=== PATIENT | female | born 1975 | race Caucasian/White ===

== ENCOUNTER → 2016-11-24 | Outpatient (REF) | payer BC ==
[~2016-11-24] MED LIST: /AUGM875TA; VICO5TAB; no home meds
[2016-11-24 15:13] LABS: MEAN CORPUSCULAR HEMOGLOBIN 31.9 pg (27.0-33.0); MEAN CORPUSCULAR HGB CONC 33.5 g/dl (32.0-36.5); MEAN CORPUSCULAR VOLUME 95.2 fl (80.0-96.0); RED CELL DISTRIBUTION WIDTH 12.7 % (11.5-14.5)
[2016-11-24 15:14] LABS: ALBUMIN 3.6 GM/DL (3.2-5.2); ALKALINE PHOSPHATASE 109 U/L (45-117); ALT/SGPT 70 U/L (12-78); ANION GAP 6 MEQ/L (8-16); AST/SGOT 45 U/L (15-37); BILIRUBIN,TOTAL 0.5 MG/DL (0.2-1.0); BLOOD UREA NITROGEN 15 MG/DL (7-18); CALCIUM LEVEL 9.5 MG/DL (8.5-10.1); CARBON DIOXIDE LEVEL 31 MEQ/L (21-32); CHLORIDE LEVEL 98 MEQ/L (98-107); CHOLESTEROL LEVEL 219 MG/DL (<200); CREATININE FOR GFR 0.77 MG/DL (0.55-1.02); GLOMERULAR FILTRATION RATE > 60.0 (>58); GLUCOSE, FASTING 169 MG/DL (70-105); POTASSIUM SERUM 4.4 MEQ/L (3.5-5.1); SODIUM LEVEL 135 MEQ/L (136-145); TOTAL PROTEIN 7.6 GM/DL (6.4-8.2); TRIGLYCERIDES LEVEL 248 MG/DL (<150)
== END ==
LOC: M LABDRAW1 13:34
PROVIDERS: ATTEND Family Medicine
DX: E11.9 Type 2 diabetes mellitus without complications (principal)

== ENCOUNTER 2017-04-19 18:09 | Inpatient (IN) | payer BC, SELFPAY ==
[2017-04-19] MEDS: ONDANSETRON 4MG/2ML VIAL (J2405) IV (18:30)
[2017-04-19] MEDS: NS 1,000 ML IV ×3 (18:30→22:23)
[2017-04-19 18:45] LABS: VENOUS BASE EXCESS -3.4 (-2.0-2.0); VENOUS O2 SATURATION 72.6 % (60.0-80.0); VENOUS PARTIAL PRESSURE CO2 44.3 mmHg (38.0-50.0); VENOUS PARTIAL PRESSURE O2 40.3 mmHg (30.0-50.0); VENOUS STANDARD HCO3 21.1 MEQ/L
[2017-04-19 18:48] LABS: LEFT SHIFT POS FLAG; MEAN CORPUSCULAR HGB CONC 33.1 g/dl (32.0-36.5); MEAN CORPUSCULAR VOLUME 90.7 fl (80.0-96.0); PLATELET COUNT, AUTOMATED 104 10^3/uL (150-450); POSITIVE DIFF POS FLAG; POSITIVE MORPH POS FLAG; WBC SCAT POS FLAG; WHITE BLOOD COUNT 16.7 10^3/uL (4.0-10.0)
[2017-04-19 18:49] LABS: ADD MANUAL DIFFER YES; DIFF SLIDE NUMBER 285
[2017-04-19 19:16] LABS: ALBUMIN 2.3 GM/DL (3.2-5.2); ALBUMIN/GLOBULIN RATIO 0.58 (1.00-1.93); ALKALINE PHOSPHATASE 167 U/L (45-117); ALT/SGPT 83 U/L (12-78); ANION GAP 15 MEQ/L (8-16); AST/SGOT 102 U/L (7-37); BILIRUBIN,DIRECT 0.2 MG/DL (0.0-0.2); BILIRUBIN,TOTAL 0.5 MG/DL (0.2-1.0); BLOOD UREA NITROGEN 41 MG/DL (7-18); CALCIUM LEVEL 8.6 MG/DL (8.5-10.1); CARBON DIOXIDE LEVEL 25 MEQ/L (21-32); CHLORIDE LEVEL 95 MEQ/L (98-107); POTASSIUM SERUM 5.1 MEQ/L (3.5-5.1); SODIUM LEVEL 135 MEQ/L (136-145); TOTAL PROTEIN 6.3 GM/DL (6.4-8.2)
[2017-04-19 19:20] LABS: BANDS 19 % (< 11)
[2017-04-19 19:21] LABS: GLUCOSE, FASTING 463 MG/DL (70-105)
[2017-04-19] MEDS: HumuLIN R (REGULAR) INSULIN (NovoLIN R) **100U/ML** PER UNIT IV (20:41)
[2017-04-19] MEDS: MORPHINE 2 MG/ML 1ML SYRINGE IV ×2 (20:58→23:25)
[2017-04-19] MEDS ORDERED: GLUCOSE 4 GM CHEW TABLET PO (22:00)
[2017-04-19] MEDS ORDERED: GLUCAGON FOR INJ 1 MG VIAL (J1610) SC (22:00)
[2017-04-19] MEDS ORDERED: DEXTROSE 50% 50 ML SYRINGE IV (22:00)
[2017-04-20] MEDS: CEFTRIAXONE SOD 1 GM in APPROPRIATE DILUENT 1 EA IV (00:03)
[2017-04-20] MEDS: HumaLOG INSULIN (NovoLOG) PER UNIT SC ×5 (00:22→21:24)
[2017-04-20] MEDS: NS 1,000 ML IV ×4 (01:00→06:26)
[2017-04-20 01:42] LABS: LACTIC ACID SEPSIS PROTOCOL 3.2 MMOL/L (0.4-2.0)
[2017-04-20] MEDS ORDERED: VANCOMYCIN HCL 500 MG in D5W MINI-BAG PLUS 100 ML IV (01:45)
[2017-04-20] MEDS ORDERED: METAL LOCK LOOP XX (02:01)
[2017-04-20] MEDS: VANCOMYCIN HCL 1,000 MG, VIAL MATE ADAPTER 1 EACH in D5W 250 ML IV (02:16)
[2017-04-20] MEDS ORDERED: PIPERACILLIN/TAZOBACTAM SOD 3.375 GM in APPROPRIATE DILUENT 1 EA IV (03:00)
[2017-04-20] MEDS: ONDANSETRON 4 MG TAB (S0181) PO ×2 (03:22→12:24)
[2017-04-20] MEDS: PIPERACILLIN/TAZOBACTAM SOD 3.375 GM in APPROPRIATE DILUENT 1 EA IV ×3 (04:09→19:47)
[2017-04-20] MEDS: traMADol 50 MG TAB PO (04:11)
[2017-04-20 05:19] LABS: MEAN CORPUSCULAR HEMOGLOBIN 30.1 pg (27.0-33.0); MEAN CORPUSCULAR HGB CONC 32.3 g/dl (32.0-36.5); MEAN CORPUSCULAR VOLUME 93.3 fl (80.0-96.0); RED CELL DISTRIBUTION WIDTH 13.2 % (11.5-14.5); WHITE BLOOD COUNT 14.1 10^3/uL (4.0-10.0)
[2017-04-20 05:54] LABS: ANION GAP 13 MEQ/L (8-16); BLOOD UREA NITROGEN 47 MG/DL (7-18); CARBON DIOXIDE LEVEL 18 MEQ/L (21-32); CHLORIDE LEVEL 105 MEQ/L (98-107); CREATININE FOR GFR 3.46 MG/DL (0.55-1.02); GLOMERULAR FILTRATION RATE 15.5 (>58); GLUCOSE, FASTING 330 MG/DL (70-105); SODIUM LEVEL 136 MEQ/L (136-145)
[2017-04-20 06:04] LABS: POTASSIUM SERUM 5.2 MEQ/L (3.5-5.1)
[2017-04-20 06:10] LABS: CALCIUM LEVEL 7.4 MG/DL (8.5-10.1); IMMATURE PLATELET FRACTION % 9.6 % (0.0-9.6); PLATELET COUNT, AUTOMATED 75 10^3/uL (150-450)
[2017-04-20] MEDS: HEPARIN SOD (PORCINE) 5000 UNITS/ML VIAL SC ×3 (06:25→22:03)
[2017-04-20] MEDS ORDERED: HumaLOG INSULIN (NovoLOG) PER UNIT SC (07:30)
[2017-04-20] MEDS: LR 1,000 ML IV ×4 (10:08→22:04)
[2017-04-20] MEDS: PERCOCET 5MG/325MG TAB PO ×2 (10:09→19:48)
[2017-04-20 11:30] LABS: IONIZED CALCIUM 3.9 MG/DL (4.5-5.3)
[2017-04-20 11:46] LABS: ANION GAP 15 MEQ/L (8-16); BLOOD UREA NITROGEN 54 MG/DL (7-18); CALCIUM LEVEL 6.9 MG/DL (8.5-10.1); CARBON DIOXIDE LEVEL 19 MEQ/L (21-32); CHLORIDE LEVEL 104 MEQ/L (98-107); CREATININE FOR GFR 3.68 MG/DL (0.55-1.02); GLOMERULAR FILTRATION RATE 14.5 (>58); GLUCOSE, FASTING 285 MG/DL (70-105); POTASSIUM SERUM 4.9 MEQ/L (3.5-5.1); SODIUM LEVEL 138 MEQ/L (136-145)
[2017-04-20 15:52] LABS: ANION GAP 15 MEQ/L (8-16); BLOOD UREA NITROGEN 52 MG/DL (7-18); CALCIUM LEVEL 6.7 MG/DL (8.5-10.1); CARBON DIOXIDE LEVEL 18 MEQ/L (21-32); CHLORIDE LEVEL 104 MEQ/L (98-107); CREATININE FOR GFR 3.68 MG/DL (0.55-1.02); GLOMERULAR FILTRATION RATE 14.5 (>58); GLUCOSE, FASTING 278 MG/DL (70-105); POTASSIUM SERUM 4.9 MEQ/L (3.5-5.1); SODIUM LEVEL 137 MEQ/L (136-145)
[2017-04-20] MEDS: IPRATROPIUM 0.5MG/ALBUTEROL 2.5MG INH SOL UD 3ML (DUONEB)(J7620) NEB ×2 (16:00→19:51)
[2017-04-20] MEDS: methylPREDNISolone INJ 125 MG/2 ML VIAL (J2930) IV ×2 (16:19→22:07)
[2017-04-20 16:26] LABS: ABG BASE EXCESS -9.4 (-2.0-2.0); ABG HCO3 18.6 MEQ/L (22.0-26.0); ABG PARTIAL PRESSURE CO2 48.3 mmHg (35.0-45.0); ABG PARTIAL PRESSURE O2 97.1 mmHg (75.0-100.0); ABG TOTAL CO2 20.1 MEQ/L (22.0-29.0)
[2017-04-20 16:27] LABS: ABG pH (ARTERIAL) 7.203 UNITS (7.350-7.450)
[2017-04-20] MEDS: CALCIUM GLUCONATE 1,000 MG in D5W MINI-BAG PLUS 100 ML IV (16:29)
[2017-04-20 17:43] LABS: ALKALINE PHOSPHATASE 181 U/L (45-117); ALT/SGPT 77 U/L (12-78); ANION GAP 11 MEQ/L (8-16); AST/SGOT 76 U/L (7-37); BILIRUBIN,TOTAL 0.7 MG/DL (0.2-1.0); BLOOD UREA NITROGEN 56 MG/DL (7-18); CALCIUM LEVEL 7.5 MG/DL (8.5-10.1); CARBON DIOXIDE LEVEL 19 MEQ/L (21-32); CHLORIDE LEVEL 104 MEQ/L (98-107); GLOMERULAR FILTRATION RATE 13.5 (>58); GLUCOSE, FASTING 243 MG/DL (70-105); SODIUM LEVEL 134 MEQ/L (136-145); TOTAL PROTEIN 6.7 GM/DL (6.4-8.2)
[2017-04-20 18:06] LABS: POTASSIUM SERUM 5.3 MEQ/L (3.5-5.1)
[2017-04-20 18:07] LABS: ALBUMIN 1.5 GM/DL (3.2-5.2); ALBUMIN/GLOBULIN RATIO 0.29 (1.00-1.93)
[2017-04-20] MEDS ORDERED: VANCOMYCIN HCL 1,000 MG, VIAL MATE ADAPTER 1 EACH in D5W 250 ML IV (21:00)
[2017-04-21] MEDS: LR 1,000 ML IV ×2 (01:01→04:02)
[2017-04-21] MEDS: IPRATROPIUM 0.5MG/ALBUTEROL 2.5MG INH SOL UD 3ML (DUONEB)(J7620) NEB ×4 (01:26→20:44)
[2017-04-21] MEDS: PIPERACILLIN/TAZOBACTAM SOD 3.375 GM in APPROPRIATE DILUENT 1 EA IV (03:59)
[2017-04-21] MEDS: methylPREDNISolone INJ 125 MG/2 ML VIAL (J2930) IV ×2 (04:01→09:30)
[2017-04-21] MEDS: PERCOCET 5MG/325MG TAB PO ×3 (04:01→20:16)
[2017-04-21 05:22] LABS: MEAN CORPUSCULAR HEMOGLOBIN 29.7 pg (27.0-33.0); MEAN CORPUSCULAR HGB CONC 31.6 g/dl (32.0-36.5); MEAN CORPUSCULAR VOLUME 93.9 fl (80.0-96.0); RED CELL DISTRIBUTION WIDTH 13.8 % (11.5-14.5); WHITE BLOOD COUNT 15.7 10^3/uL (4.0-10.0)
[2017-04-21 05:26] LABS: PLATELET COUNT, AUTOMATED 50 10^3/uL (150-450)
[2017-04-21 05:29] LABS: IMMATURE PLATELET FRACTION % 14.1 % (0.0-9.6)
[2017-04-21 05:34] LABS: ANION GAP 16 MEQ/L (8-16); BLOOD UREA NITROGEN 66 MG/DL (7-18); CALCIUM LEVEL 7.7 MG/DL (8.5-10.1); CARBON DIOXIDE LEVEL 17 MEQ/L (21-32); CHLORIDE LEVEL 100 MEQ/L (98-107); GLOMERULAR FILTRATION RATE 12.4 (>58); GLUCOSE, FASTING 313 MG/DL (70-105); SODIUM LEVEL 133 MEQ/L (136-145)
[2017-04-21 05:35] LABS: POTASSIUM SERUM 5.5 MEQ/L (3.5-5.1)
[2017-04-21] MEDS: HEPARIN SOD (PORCINE) 5000 UNITS/ML VIAL SC (05:39)
[2017-04-21 05:59] LABS: ABG BASE EXCESS -12.8 (-2.0-2.0); ABG HCO3 13.5 MEQ/L (22.0-26.0); ABG PARTIAL PRESSURE CO2 32.8 mmHg (35.0-45.0); ABG STANDARD HCO3 14.6 MEQ/L (22.0-26.0); ABG TOTAL CO2 14.5 MEQ/L (22.0-29.0)
[2017-04-21 06:01] LABS: ABG pH (ARTERIAL) 7.232 UNITS (7.350-7.450)
[2017-04-21] MEDS: HumaLOG INSULIN (NovoLOG) PER UNIT SC ×4 (07:32→20:15)
[2017-04-21] MEDS: PIPERACILLIN/TAZOBACTAM SOD 2.25 GM in APPROPRIATE DILUENT 1 EA IV ×2 (11:39→17:52)
[2017-04-21] MEDS: predniSONE 20 MG TAB PO (12:25)
[2017-04-21] MEDS: SODIUM BICARBONATE 75 MEQ in NS 0.45% 1,000 ML IV (13:45)
[2017-04-21] MEDS: METOPROLOL 5 MG/5 ML VIAL IV ×3 (14:44→15:05)
[2017-04-21] MEDS: traMADol 50 MG TAB PO (16:25)
[2017-04-21] MEDS: METOPROLOL TART 25 MG TABLET PO (18:00)
[2017-04-21] MEDS: FAMOTIDINE 20 MG TAB PO (20:23)
[2017-04-21] MEDS: AMIODARONE 150MG/3ML INJ (J0282) IVP (22:19)
[2017-04-21] MEDS: AMIODARONE HCL 150 MG in APPROPRIATE DILUENT 1 EA IV (22:51)
[2017-04-21 23:12] LABS: ALBUMIN 1.6 GM/DL (3.2-5.2); ANION GAP 13 MEQ/L (8-16); BLOOD UREA NITROGEN 93 MG/DL (7-18); CALCIUM LEVEL 8.2 MG/DL (8.5-10.1); CARBON DIOXIDE LEVEL 20 MEQ/L (21-32); CHLORIDE LEVEL 97 MEQ/L (98-107); CREATININE FOR GFR 4.69 MG/DL (0.55-1.02); GLOMERULAR FILTRATION RATE 10.9 (>58); GLUCOSE, FASTING 307 MG/DL (70-105); MAGNESIUM LEVEL 2.5 MG/DL (1.8-2.4); PHOSPHORUS LEVEL 6.8 MG/DL (2.5-4.9); SODIUM LEVEL 130 MEQ/L (136-145)
[2017-04-21 23:34] LABS: POTASSIUM SERUM 5.7 MEQ/L (3.5-5.1)
[2017-04-22] MEDS: SOD POLYSTYRENE SULFONATE SUSP 15 GM/60 ML UD PO (00:21)
[2017-04-22] MEDS: FUROSEMIDE 100 MG/10 ML VIAL (J1940) IV (00:22)
[2017-04-22] MEDS: SODIUM BICARBONATE 75 MEQ in NS 0.45% 1,000 ML IV ×2 (00:22→10:32)
[2017-04-22] MEDS: IPRATROPIUM 0.5MG/ALBUTEROL 2.5MG INH SOL UD 3ML (DUONEB)(J7620) NEB ×4 (00:47→20:27)
[2017-04-22] MEDS: PIPERACILLIN/TAZOBACTAM SOD 2.25 GM in APPROPRIATE DILUENT 1 EA IV (03:55)
[2017-04-22 04:52] LABS: MEAN CORPUSCULAR HEMOGLOBIN 29.6 pg (27.0-33.0); MEAN CORPUSCULAR HGB CONC 32.8 g/dl (32.0-36.5); MEAN CORPUSCULAR VOLUME 90.1 fl (80.0-96.0); RED CELL DISTRIBUTION WIDTH 13.8 % (11.5-14.5); WHITE BLOOD COUNT 17.9 10^3/uL (4.0-10.0)
[2017-04-22 04:56] LABS: PLATELET COUNT, AUTOMATED 44 10^3/uL (150-450)
[2017-04-22 05:05] LABS: ANION GAP 15 MEQ/L (8-16); BLOOD UREA NITROGEN 106 MG/DL (7-18); CALCIUM LEVEL 7.6 MG/DL (8.5-10.1); CARBON DIOXIDE LEVEL 18 MEQ/L (21-32); CHLORIDE LEVEL 97 MEQ/L (98-107); CREATININE FOR GFR 4.64 MG/DL (0.55-1.02); GLOMERULAR FILTRATION RATE 11.1 (>58); GLUCOSE, FASTING 341 MG/DL (70-105); SODIUM LEVEL 130 MEQ/L (136-145)
[2017-04-22 05:31] LABS: POTASSIUM SERUM 5.3 MEQ/L (3.5-5.1)
[2017-04-22 06:05] LABS: ABG BASE EXCESS -11.6 (-2.0-2.0); ABG HCO3 15.7 MEQ/L (22.0-26.0); ABG PARTIAL PRESSURE O2 73.4 mmHg (75.0-100.0); ABG STANDARD HCO3 15.4 MEQ/L (22.0-26.0); ABG TOTAL CO2 16.9 MEQ/L (22.0-29.0)
[2017-04-22 06:07] LABS: ABG pH (ARTERIAL) 7.211 UNITS (7.350-7.450)
[2017-04-22] MEDS: AMIODARONE 200 MG TAB (PACERONE) PO ×2 (08:01→20:48)
[2017-04-22] MEDS: FAMOTIDINE 20 MG TAB PO ×2 (08:01→20:48)
[2017-04-22] MEDS: predniSONE 20 MG TAB PO (08:01)
[2017-04-22] MEDS: HumaLOG INSULIN (NovoLOG) PER UNIT SC ×4 (08:01→20:49)
[2017-04-22] MEDS: CEFTRIAXONE SOD 1 GM in APPROPRIATE DILUENT 1 EA IV ×2 (09:26→20:49)
[2017-04-22] MEDS: SODIUM BICARBONATE 150 MEQ in D5W 1,000 ML IV (14:39)
[2017-04-22 16:22] LABS: ANION GAP 18 MEQ/L (8-16); BLOOD UREA NITROGEN 117 MG/DL (7-18); CALCIUM LEVEL 7.3 MG/DL (8.5-10.1); CARBON DIOXIDE LEVEL 17 MEQ/L (21-32); CHLORIDE LEVEL 96 MEQ/L (98-107); CREATININE FOR GFR 4.94 MG/DL (0.55-1.02); GLOMERULAR FILTRATION RATE 10.3 (>58); GLUCOSE, FASTING 388 MG/DL (70-105); POTASSIUM SERUM 4.7 MEQ/L (3.5-5.1); SODIUM LEVEL 131 MEQ/L (136-145)
[2017-04-23] MEDS: IPRATROPIUM 0.5MG/ALBUTEROL 2.5MG INH SOL UD 3ML (DUONEB)(J7620) NEB ×4 (02:00→20:55)
[2017-04-23 04:52] LABS: MEAN CORPUSCULAR HEMOGLOBIN 29.6 pg (27.0-33.0); MEAN CORPUSCULAR HGB CONC 33.2 g/dl (32.0-36.5); MEAN CORPUSCULAR VOLUME 89.2 fl (80.0-96.0); RED CELL DISTRIBUTION WIDTH 13.8 % (11.5-14.5); WHITE BLOOD COUNT 20.5 10^3/uL (4.0-10.0)
[2017-04-23 04:56] LABS: IMMATURE PLATELET FRACTION % 16.9 % (0.0-9.6); PLATELET COUNT, AUTOMATED 51 10^3/uL (150-450)
[2017-04-23 04:59] LABS: ANION GAP 16 MEQ/L (8-16); BLOOD UREA NITROGEN 129 MG/DL (7-18); CALCIUM LEVEL 7.1 MG/DL (8.5-10.1); CARBON DIOXIDE LEVEL 22 MEQ/L (21-32); CHLORIDE LEVEL 92 MEQ/L (98-107); CREATININE FOR GFR 5.11 MG/DL (0.55-1.02); GLOMERULAR FILTRATION RATE 9.9 (>58); POTASSIUM SERUM 4.7 MEQ/L (3.5-5.1); SODIUM LEVEL 130 MEQ/L (136-145)
[2017-04-23 05:02] LABS: GLUCOSE, FASTING 498 MG/DL (70-105)
[2017-04-23] MEDS: HumaLOG INSULIN (NovoLOG) PER UNIT SC ×6 (05:36→21:00)
[2017-04-23] MEDS: SODIUM BICARBONATE 150 MEQ in D5W 1,000 ML IV (05:36)
[2017-04-23] MEDS: HEPARIN 1,000 UNITS/ML 10ML VIAL (FOR RADIOLOGY& DIALYSIS ONLY) XX ×3 (10:00→12:30)
[2017-04-23] MEDS: HEPARIN 1,000 UNITS/ML 10ML VIAL (FOR RADIOLOGY& DIALYSIS ONLY) IV (10:00)
[2017-04-23] MEDS: LIDOCAINE 1% MDV 20ML VIAL SC (10:07)
[2017-04-23] MEDS ORDERED: LIDOCAINE 1% MDV 20ML VIAL As Ordered (10:11)
[2017-04-23] MEDS: CEFTRIAXONE SOD 1 GM in APPROPRIATE DILUENT 1 EA IV ×2 (11:41→21:45)
[2017-04-23] MEDS: AMIODARONE 200 MG TAB (PACERONE) PO (11:41)
[2017-04-23] MEDS: FAMOTIDINE 20 MG TAB PO ×2 (11:41→21:45)
[2017-04-23] MEDS: ONDANSETRON 4 MG TAB (S0181) PO (12:58)
[2017-04-23] MEDS ORDERED: HumaLOG INSULIN (NovoLOG) PER UNIT SC (13:30)
[2017-04-23] MEDS: PERCOCET 5MG/325MG TAB PO (22:44)
[2017-04-24] MEDS: IPRATROPIUM 0.5MG/ALBUTEROL 2.5MG INH SOL UD 3ML (DUONEB)(J7620) NEB ×4 (02:00→20:20)
[2017-04-24 04:55] LABS: MEAN CORPUSCULAR HEMOGLOBIN 29.6 pg (27.0-33.0); MEAN CORPUSCULAR HGB CONC 34.4 g/dl (32.0-36.5); RED CELL DISTRIBUTION WIDTH 13.6 % (11.5-14.5); WHITE BLOOD COUNT 23.8 10^3/uL (4.0-10.0)
[2017-04-24 05:06] LABS: ANION GAP 15 MEQ/L (8-16); BLOOD UREA NITROGEN 105 MG/DL (7-18); CALCIUM LEVEL 7.4 MG/DL (8.5-10.1); CARBON DIOXIDE LEVEL 23 MEQ/L (21-32); CHLORIDE LEVEL 97 MEQ/L (98-107); CREATININE FOR GFR 3.89 MG/DL (0.55-1.02); GLOMERULAR FILTRATION RATE 13.6 (>58); GLUCOSE, FASTING 317 MG/DL (70-105); POTASSIUM SERUM 4.7 MEQ/L (3.5-5.1); SODIUM LEVEL 135 MEQ/L (136-145)
[2017-04-24 05:17] LABS: PLATELET COUNT, AUTOMATED 60 10^3/uL (150-450)
[2017-04-24 05:19] LABS: IMMATURE PLATELET FRACTION % 12.7 % (0.0-9.6)
[2017-04-24] MEDS: HumaLOG INSULIN (NovoLOG) PER UNIT SC ×5 (08:00→21:00)
[2017-04-24] MEDS: FAMOTIDINE 20 MG TAB PO ×2 (08:00→21:16)
[2017-04-24] MEDS: CEFTRIAXONE SOD 1 GM in APPROPRIATE DILUENT 1 EA IV ×2 (08:00→21:18)
[2017-04-24] MEDS: ONDANSETRON 4 MG TAB (S0181) PO (10:21)
[2017-04-24] MEDS ORDERED: SODIUM CHLORIDE 0.9% INJ 10 ML SYR IV (13:45)
[2017-04-24] MEDS: SODIUM CHLORIDE 0.9% INJ 10 ML SYR IV (18:12)
[2017-04-24] MEDS: traMADol 50 MG TAB PO (21:16)
[2017-04-25] MEDS: IPRATROPIUM 0.5MG/ALBUTEROL 2.5MG INH SOL UD 3ML (DUONEB)(J7620) NEB ×4 (00:51→19:45)
[2017-04-25] MEDS: PERCOCET 5MG/325MG TAB PO (02:34)
[2017-04-25 05:37] LABS: MEAN CORPUSCULAR HGB CONC 34.3 g/dl (32.0-36.5); MEAN CORPUSCULAR VOLUME 87.3 fl (80.0-96.0); RED CELL DISTRIBUTION WIDTH 13.6 % (11.5-14.5); WHITE BLOOD COUNT 22.8 10^3/uL (4.0-10.0)
[2017-04-25 05:39] LABS: PLATELET COUNT, AUTOMATED 84 10^3/uL (150-450)
[2017-04-25 05:40] LABS: IMMATURE PLATELET FRACTION % 10.1 % (0.0-9.6)
[2017-04-25 05:57] LABS: ANION GAP 12 MEQ/L (8-16); BLOOD UREA NITROGEN 115 MG/DL (7-18); CALCIUM LEVEL 7.2 MG/DL (8.5-10.1); CARBON DIOXIDE LEVEL 25 MEQ/L (21-32); CHLORIDE LEVEL 100 MEQ/L (98-107); CREATININE FOR GFR 3.55 MG/DL (0.55-1.02); GLOMERULAR FILTRATION RATE 15.1 (>58); GLUCOSE, FASTING 340 MG/DL (70-105); POTASSIUM SERUM 4.6 MEQ/L (3.5-5.1); SODIUM LEVEL 137 MEQ/L (136-145)
[2017-04-25] MEDS: SODIUM CHLORIDE 0.9% INJ 10 ML SYR IV ×2 (05:57→16:52)
[2017-04-25] MEDS: HumaLOG INSULIN (NovoLOG) PER UNIT SC ×4 (06:38→21:00)
[2017-04-25] MEDS: FAMOTIDINE 20 MG TAB PO ×2 (06:38→21:25)
[2017-04-25] MEDS: CEFTRIAXONE SOD 1 GM in APPROPRIATE DILUENT 1 EA IV ×2 (09:00→21:25)
[2017-04-25] MEDS: LEVEMIR (INSULIN DETEMIR) 1 UNITS/0.01ML SC (16:51)
[2017-04-26] MEDS: traMADol 50 MG TAB PO (00:44)
[2017-04-26] MEDS: IPRATROPIUM 0.5MG/ALBUTEROL 2.5MG INH SOL UD 3ML (DUONEB)(J7620) NEB ×4 (02:00→19:43)
[2017-04-26 05:49] LABS: MEAN CORPUSCULAR HEMOGLOBIN 29.7 pg (27.0-33.0); MEAN CORPUSCULAR HGB CONC 34.2 g/dl (32.0-36.5); MEAN CORPUSCULAR VOLUME 86.8 fl (80.0-96.0); PLATELET COUNT, AUTOMATED 118 10^3/uL (150-450); RED CELL DISTRIBUTION WIDTH 13.6 % (11.5-14.5); WHITE BLOOD COUNT 23.9 10^3/uL (4.0-10.0)
[2017-04-26] MEDS: SODIUM CHLORIDE 0.9% INJ 10 ML SYR IV ×2 (05:49→17:50)
[2017-04-26 06:13] LABS: ANION GAP 10 MEQ/L (8-16); BLOOD UREA NITROGEN 96 MG/DL (7-18); CALCIUM LEVEL 7.4 MG/DL (8.5-10.1); CARBON DIOXIDE LEVEL 28 MEQ/L (21-32); CHLORIDE LEVEL 98 MEQ/L (98-107); CREATININE FOR GFR 2.94 MG/DL (0.55-1.02); GLOMERULAR FILTRATION RATE 18.7 (>58); GLUCOSE, FASTING 351 MG/DL (70-105); POTASSIUM SERUM 4.4 MEQ/L (3.5-5.1); SODIUM LEVEL 136 MEQ/L (136-145)
[2017-04-26] MEDS: HumaLOG INSULIN (NovoLOG) PER UNIT SC ×4 (07:55→22:30)
[2017-04-26] MEDS: FAMOTIDINE 20 MG TAB PO ×2 (07:55→22:29)
[2017-04-26] MEDS: CEFTRIAXONE SOD 1 GM in APPROPRIATE DILUENT 1 EA IV (10:05)
[2017-04-26] MEDS: LEVEMIR (INSULIN DETEMIR) 1 UNITS/0.01ML SC (17:26)
[2017-04-26] MEDS: ONDANSETRON 4 MG TAB (S0181) PO (18:26)
[2017-04-26] MEDS: PERCOCET 5MG/325MG TAB PO (18:28)
[2017-04-26] MEDS: LIDOCAINE 1% MDV 20ML VIAL IM (22:30)
[2017-04-26] MEDS: cefTRIAXone SOD 1 GM VIAL (J0696) IM (22:30)
[2017-04-27] MEDS: ONDANSETRON 4 MG TAB (S0181) PO ×3 (01:21→21:05)
[2017-04-27] MEDS: PERCOCET 5MG/325MG TAB PO ×4 (01:21→21:05)
[2017-04-27] MEDS: IPRATROPIUM 0.5MG/ALBUTEROL 2.5MG INH SOL UD 3ML (DUONEB)(J7620) NEB ×5 (02:00→21:14)
[2017-04-27] MEDS: SODIUM CHLORIDE 0.9% INJ 10 ML SYR IV ×2 (05:51→17:27)
[2017-04-27] MEDS: HumaLOG INSULIN (NovoLOG) PER UNIT SC ×4 (07:51→21:06)
[2017-04-27] MEDS: FAMOTIDINE 20 MG TAB PO ×2 (09:31→21:05)
[2017-04-27] MEDS: cefTRIAXone SOD 1 GM VIAL (J0696) IM ×2 (09:49→21:00)
[2017-04-27 09:59] LABS: MEAN CORPUSCULAR HEMOGLOBIN 30.2 pg (27.0-33.0); MEAN CORPUSCULAR HGB CONC 33.3 g/dl (32.0-36.5); MEAN CORPUSCULAR VOLUME 90.9 fl (80.0-96.0); PLATELET COUNT, AUTOMATED 139 10^3/uL (150-450); WHITE BLOOD COUNT 23.1 10^3/uL (4.0-10.0)
[2017-04-27 10:24] LABS: ALBUMIN 1.5 GM/DL (3.2-5.2); ANION GAP 10 MEQ/L (8-16); BLOOD UREA NITROGEN 77 MG/DL (7-18); CALCIUM LEVEL 8.2 MG/DL (8.5-10.1); CARBON DIOXIDE LEVEL 24 MEQ/L (21-32); CHLORIDE LEVEL 102 MEQ/L (98-107); CREATININE FOR GFR 2.46 MG/DL (0.55-1.02); GLUCOSE, FASTING 374 MG/DL (70-105); PHOSPHORUS LEVEL 4.8 MG/DL (2.5-4.9); POTASSIUM SERUM 4.6 MEQ/L (3.5-5.1); SODIUM LEVEL 136 MEQ/L (136-145)
[2017-04-27] MEDS: LEVEMIR (INSULIN DETEMIR) 1 UNITS/0.01ML SC ×2 (15:03→21:06)
[2017-04-27] MEDS: CEFTRIAXONE SOD 1 GM in APPROPRIATE DILUENT 1 EA IV (23:44)
[2017-04-28] MEDS: IPRATROPIUM 0.5MG/ALBUTEROL 2.5MG INH SOL UD 3ML (DUONEB)(J7620) NEB ×3 (01:43→20:33)
[2017-04-28] MEDS: SODIUM CHLORIDE 0.9% INJ 10 ML SYR IV ×2 (05:56→17:59)
[2017-04-28] MEDS: PERCOCET 5MG/325MG TAB PO ×3 (05:57→20:24)
[2017-04-28] MEDS: ONDANSETRON 4 MG TAB (S0181) PO ×2 (05:57→20:24)
[2017-04-28 06:10] LABS: MEAN CORPUSCULAR HEMOGLOBIN 30.1 pg (27.0-33.0); MEAN CORPUSCULAR VOLUME 91.3 fl (80.0-96.0); PLATELET COUNT, AUTOMATED 144 10^3/uL (150-450)
[2017-04-28 06:37] LABS: ALBUMIN 1.6 GM/DL (3.2-5.2); ANION GAP 7 MEQ/L (8-16); BLOOD UREA NITROGEN 61 MG/DL (7-18); CALCIUM LEVEL 7.6 MG/DL (8.5-10.1); CARBON DIOXIDE LEVEL 29 MEQ/L (21-32); CHLORIDE LEVEL 102 MEQ/L (98-107); CREATININE FOR GFR 2.09 MG/DL (0.55-1.02); GLOMERULAR FILTRATION RATE 27.8 (>58); GLUCOSE, FASTING 300 MG/DL (70-105); PHOSPHORUS LEVEL 4.2 MG/DL (2.5-4.9); POTASSIUM SERUM 4.4 MEQ/L (3.5-5.1); SODIUM LEVEL 138 MEQ/L (136-145)
[2017-04-28] MEDS: HumaLOG INSULIN (NovoLOG) PER UNIT SC ×4 (08:21→20:25)
[2017-04-28] MEDS: LEVEMIR (INSULIN DETEMIR) 1 UNITS/0.01ML SC ×2 (08:22→20:25)
[2017-04-28] MEDS: FAMOTIDINE 20 MG TAB PO ×2 (08:22→20:23)
[2017-04-28] MEDS: CEFTRIAXONE SOD 1 GM in APPROPRIATE DILUENT 1 EA IV (11:04)
[2017-04-28] MEDS: FLUCONAZOLE 50MG TABLET PO (14:12)
[2017-04-29] MEDS: IPRATROPIUM 0.5MG/ALBUTEROL 2.5MG INH SOL UD 3ML (DUONEB)(J7620) NEB (01:31)
[2017-04-29] MEDS: SODIUM CHLORIDE 0.9% INJ 10 ML SYR IV ×2 (05:40→17:44)
[2017-04-29] MEDS: LevoFLOXacin 500 MG TABLET PO (05:40)
[2017-04-29 05:58] LABS: MEAN CORPUSCULAR HEMOGLOBIN 29.9 pg (27.0-33.0); MEAN CORPUSCULAR HGB CONC 32.7 g/dl (32.0-36.5); MEAN CORPUSCULAR VOLUME 91.5 fl (80.0-96.0); PLATELET COUNT, AUTOMATED 172 10^3/uL (150-450); RED CELL DISTRIBUTION WIDTH 13.8 % (11.5-14.5); WHITE BLOOD COUNT 19.3 10^3/uL (4.0-10.0)
[2017-04-29 06:22] LABS: ALBUMIN 1.5 GM/DL (3.2-5.2); ANION GAP 6 MEQ/L (8-16); BLOOD UREA NITROGEN 47 MG/DL (7-18); CALCIUM LEVEL 7.5 MG/DL (8.5-10.1); CARBON DIOXIDE LEVEL 30 MEQ/L (21-32); CHLORIDE LEVEL 104 MEQ/L (98-107); CREATININE FOR GFR 1.89 MG/DL (0.55-1.02); GLOMERULAR FILTRATION RATE 31.2 (>58); GLUCOSE, FASTING 312 MG/DL (70-105); PHOSPHORUS LEVEL 3.9 MG/DL (2.5-4.9); POTASSIUM SERUM 4.4 MEQ/L (3.5-5.1); SODIUM LEVEL 140 MEQ/L (136-145)
[2017-04-29] MEDS: ONDANSETRON 4 MG TAB (S0181) PO ×2 (08:00→20:42)
[2017-04-29] MEDS: PERCOCET 5MG/325MG TAB PO ×2 (08:01→20:42)
[2017-04-29] MEDS: FAMOTIDINE 20 MG TAB PO ×2 (09:05→20:41)
[2017-04-29] MEDS: HumaLOG INSULIN (NovoLOG) PER UNIT SC ×4 (09:06→20:41)
[2017-04-29] MEDS: LEVEMIR (INSULIN DETEMIR) 1 UNITS/0.01ML SC ×2 (09:07→20:41)
[2017-04-30] MEDS: SODIUM CHLORIDE 0.9% INJ 10 ML SYR IV ×2 (05:03→17:48)
[2017-04-30] MEDS: LevoFLOXacin 500 MG TABLET PO (05:03)
[2017-04-30 05:21] LABS: MEAN CORPUSCULAR HEMOGLOBIN 29.9 pg (27.0-33.0); MEAN CORPUSCULAR HGB CONC 32.7 g/dl (32.0-36.5); MEAN CORPUSCULAR VOLUME 91.4 fl (80.0-96.0); PLATELET COUNT, AUTOMATED 175 10^3/uL (150-450); RED CELL DISTRIBUTION WIDTH 13.6 % (11.5-14.5); WHITE BLOOD COUNT 18.7 10^3/uL (4.0-10.0)
[2017-04-30 05:45] LABS: ALBUMIN 1.6 GM/DL (3.2-5.2); ANION GAP 6 MEQ/L (8-16); BLOOD UREA NITROGEN 40 MG/DL (7-18); CALCIUM LEVEL 7.4 MG/DL (8.5-10.1); CARBON DIOXIDE LEVEL 31 MEQ/L (21-32); CHLORIDE LEVEL 106 MEQ/L (98-107); CREATININE FOR GFR 1.74 MG/DL (0.55-1.02); GLOMERULAR FILTRATION RATE 34.3 (>58); GLUCOSE, FASTING 198 MG/DL (70-105); PHOSPHORUS LEVEL 3.4 MG/DL (2.5-4.9); POTASSIUM SERUM 4.1 MEQ/L (3.5-5.1); SODIUM LEVEL 143 MEQ/L (136-145)
[2017-04-30] MEDS: PERCOCET 5MG/325MG TAB PO ×2 (06:36→20:34)
[2017-04-30] MEDS: HumaLOG INSULIN (NovoLOG) PER UNIT SC ×4 (08:07→20:32)
[2017-04-30] MEDS: FAMOTIDINE 20 MG TAB PO ×2 (08:08→20:33)
[2017-04-30] MEDS: amLODIPine 5 MG TAB PO ×2 (08:08→09:45)
[2017-04-30] MEDS: LEVEMIR (INSULIN DETEMIR) 1 UNITS/0.01ML SC ×2 (08:08→20:32)
[2017-04-30] MEDS: APIXABAN 5 MG TAB (ELIQUIS) PO ×2 (09:45→20:33)
[2017-04-30] MEDS: ONDANSETRON 4 MG TAB (S0181) PO (20:33)
[2017-05-01] MEDS: LevoFLOXacin 500 MG TABLET PO (05:24)
[2017-05-01] MEDS: PERCOCET 5MG/325MG TAB PO ×3 (05:25→21:52)
[2017-05-01] MEDS: SODIUM CHLORIDE 0.9% INJ 10 ML SYR IV ×2 (05:25→17:44)
[2017-05-01] MEDS: APIXABAN 5 MG TAB (ELIQUIS) PO ×2 (08:31→21:50)
[2017-05-01] MEDS: LEVEMIR (INSULIN DETEMIR) 1 UNITS/0.01ML SC ×2 (08:31→21:50)
[2017-05-01] MEDS: FAMOTIDINE 20 MG TAB PO ×2 (08:31→21:49)
[2017-05-01] MEDS: HumaLOG INSULIN (NovoLOG) PER UNIT SC ×4 (08:31→21:51)
[2017-05-01] MEDS: amLODIPine 5 MG TAB PO (08:34)
[2017-05-01] MEDS: ONDANSETRON 4 MG TAB (S0181) PO (13:45)
[2017-05-02] MEDS: SODIUM CHLORIDE 0.9% INJ 10 ML SYR IV ×2 (05:01→17:39)
[2017-05-02] MEDS: LevoFLOXacin 500 MG TABLET PO (05:01)
[2017-05-02 05:25] LABS: MEAN CORPUSCULAR HGB CONC 32.3 g/dl (32.0-36.5); MEAN CORPUSCULAR VOLUME 92.9 fl (80.0-96.0); PLATELET COUNT, AUTOMATED 168 10^3/uL (150-450); RED CELL DISTRIBUTION WIDTH 13.5 % (11.5-14.5); WHITE BLOOD COUNT 17.8 10^3/uL (4.0-10.0)
[2017-05-02 05:56] LABS: ALBUMIN 1.6 GM/DL (3.2-5.2); ANION GAP 6 MEQ/L (8-16); BLOOD UREA NITROGEN 29 MG/DL (7-18); CARBON DIOXIDE LEVEL 30 MEQ/L (21-32); CHLORIDE LEVEL 107 MEQ/L (98-107); GLOMERULAR FILTRATION RATE 40.7 (>58); GLUCOSE, FASTING 241 MG/DL (70-105); PHOSPHORUS LEVEL 3.6 MG/DL (2.5-4.9); POTASSIUM SERUM 4.1 MEQ/L (3.5-5.1); SODIUM LEVEL 143 MEQ/L (136-145)
[2017-05-02] MEDS: APIXABAN 5 MG TAB (ELIQUIS) PO (07:55)
[2017-05-02] MEDS: HumaLOG INSULIN (NovoLOG) PER UNIT SC ×4 (07:55→21:31)
[2017-05-02] MEDS: LEVEMIR (INSULIN DETEMIR) 1 UNITS/0.01ML SC ×2 (07:55→21:30)
[2017-05-02] MEDS: FAMOTIDINE 20 MG TAB PO ×2 (07:55→21:30)
[2017-05-02] MEDS: amLODIPine 5 MG TAB PO (07:55)
[2017-05-02] MEDS: ONDANSETRON 4 MG TAB (S0181) PO ×2 (09:28→16:37)
[2017-05-02] MEDS: PERCOCET 5MG/325MG TAB PO ×3 (09:29→22:25)
[2017-05-03] MEDS: LevoFLOXacin 500 MG TABLET PO (05:26)
[2017-05-03] MEDS: SODIUM CHLORIDE 0.9% INJ 10 ML SYR IV ×2 (05:26→17:22)
[2017-05-03 05:47] LABS: MEAN CORPUSCULAR HEMOGLOBIN 29.5 pg (27.0-33.0); MEAN CORPUSCULAR HGB CONC 31.7 g/dl (32.0-36.5); MEAN CORPUSCULAR VOLUME 93.1 fl (80.0-96.0); PLATELET COUNT, AUTOMATED 179 10^3/uL (150-450); RED CELL DISTRIBUTION WIDTH 13.3 % (11.5-14.5); WHITE BLOOD COUNT 17.5 10^3/uL (4.0-10.0)
[2017-05-03] MEDS: PERCOCET 5MG/325MG TAB PO ×3 (06:03→20:30)
[2017-05-03 06:05] LABS: ALBUMIN 1.7 GM/DL (3.2-5.2); ANION GAP 4 MEQ/L (8-16); BLOOD UREA NITROGEN 26 MG/DL (7-18); CALCIUM LEVEL 7.2 MG/DL (8.5-10.1); CARBON DIOXIDE LEVEL 32 MEQ/L (21-32); CHLORIDE LEVEL 107 MEQ/L (98-107); GLOMERULAR FILTRATION RATE 40.7 (>58); GLUCOSE, FASTING 190 MG/DL (70-105); PHOSPHORUS LEVEL 3.8 MG/DL (2.5-4.9); SODIUM LEVEL 143 MEQ/L (136-145)
[2017-05-03] MEDS: FAMOTIDINE 20 MG TAB PO ×2 (08:40→20:30)
[2017-05-03] MEDS: amLODIPine 5 MG TAB PO (08:40)
[2017-05-03] MEDS: LEVEMIR (INSULIN DETEMIR) 1 UNITS/0.01ML SC ×2 (08:41→20:29)
[2017-05-03] MEDS: HumaLOG INSULIN (NovoLOG) PER UNIT SC ×4 (08:41→20:29)
[2017-05-04] MEDS: PERCOCET 5MG/325MG TAB PO ×2 (04:27→12:39)
[2017-05-04] MEDS: LevoFLOXacin 500 MG TABLET PO (05:09)
[2017-05-04] MEDS: SODIUM CHLORIDE 0.9% INJ 10 ML SYR IV ×3 (06:00→15:21)
[2017-05-04 06:18] LABS: MEAN CORPUSCULAR HEMOGLOBIN 28.9 pg (27.0-33.0); MEAN CORPUSCULAR HGB CONC 31.6 g/dl (32.0-36.5); MEAN CORPUSCULAR VOLUME 91.5 fl (80.0-96.0); PLATELET COUNT, AUTOMATED 148 10^3/uL (150-450); RED CELL DISTRIBUTION WIDTH 13.2 % (11.5-14.5); WHITE BLOOD COUNT 15.4 10^3/uL (4.0-10.0)
[2017-05-04 06:54] LABS: ALBUMIN 1.6 GM/DL (3.2-5.2); ANION GAP 4 MEQ/L (8-16); BLOOD UREA NITROGEN 24 MG/DL (7-18); CALCIUM LEVEL 7.3 MG/DL (8.5-10.1); CARBON DIOXIDE LEVEL 31 MEQ/L (21-32); CHLORIDE LEVEL 105 MEQ/L (98-107); GLOMERULAR FILTRATION RATE 44.1 (>58); GLUCOSE, FASTING 228 MG/DL (70-105); PHOSPHORUS LEVEL 3.7 MG/DL (2.5-4.9); POTASSIUM SERUM 4.1 MEQ/L (3.5-5.1); SODIUM LEVEL 140 MEQ/L (136-145)
[2017-05-04] MEDS: LEVEMIR (INSULIN DETEMIR) 1 UNITS/0.01ML SC (08:20)
[2017-05-04] MEDS: HumaLOG INSULIN (NovoLOG) PER UNIT SC ×2 (08:20→12:39)
[2017-05-04] MEDS: FAMOTIDINE 20 MG TAB PO (08:20)
[2017-05-04] MEDS: amLODIPine 5 MG TAB PO (08:21)
== END 2017-05-04 16:55 | disposition home or self-care (01) | DRG 720 ==
LOC: M ED INP 04-20 01:41 → M ICU 04-20 02:55 → M MSPAV 04-24 14:24 → M ED 18:09
PROC: 5A1D70Z Performance of Urinary Filtration, Intermittent, Less than 6 Hours Per Day (ICD-10-PCS; 2017-04-23)
PROC: 02HV33Z Insertion of Infusion Device into Superior Vena Cava, Percutaneous Approach (ICD-10-PCS; 2017-04-23)
PROC: 02HV33Z Insertion of Infusion Device into Superior Vena Cava, Percutaneous Approach (ICD-10-PCS; principal; 2017-04-24)
PROC: 02HV33Z Insertion of Infusion Device into Superior Vena Cava, Percutaneous Approach (ICD-10-PCS; 2017-04-27)
DX: A41.51 Sepsis due to Escherichia coli [E. coli] (principal); N17.0 Acute kidney failure with tubular necrosis; R65.21 Severe sepsis with septic shock; E87.2 Acidosis; E88.89 Other specified metabolic disorders; D69.6 Thrombocytopenia, unspecified; I48.0 Paroxysmal atrial fibrillation; B37.3 Candidiasis of vulva and vagina; N10 Acute pyelonephritis; I42.9 Cardiomyopathy, unspecified; E11.65 Type 2 diabetes mellitus with hyperglycemia; E66.2 Morbid (severe) obesity with alveolar hypoventilation; Z68.43 Body mass index [BMI] 50.0-59.9, adult; E87.5 Hyperkalemia; E87.1 Hypo-osmolality and hyponatremia; K52.9 Noninfective gastroenteritis and colitis, unspecified; G47.33 Obstructive sleep apnea (adult) (pediatric); J45.909 Unspecified asthma, uncomplicated; B96.20 Unspecified Escherichia coli [E. coli] as the cause of diseases classified elsewhere; Z79.899 Other long term (current) drug therapy; Z79.84 Long term (current) use of oral hypoglycemic drugs

== ENCOUNTER → 2017-05-19 | Outpatient (CLI) | payer BC ==
[2017-05-19 16:40] LABS: BASO # 0.1 10^3/uL (0.0-0.2); BASO % 0.4 % (0.0-1.0); EOS # 0.2 10^3/uL (0.0-0.50); EOS % 1.2 % (0.0-3.0); HEMATOCRIT 38.4 % (36.0-47.0); IMMATURE GRANULOCYTE # 0.2 10^3/uL (0-0); IMMATURE GRANULOCYTE % 1.5 % (0-0); LYMPH # 2.2 10^3/uL (1.5-4.5); LYMPH % 17.2 % (24.0-44.0); MEAN CORPUSCULAR HEMOGLOBIN 28.3 pg (27.0-33.0); MEAN CORPUSCULAR HGB CONC 31.3 g/dl (32.0-36.5); MEAN CORPUSCULAR VOLUME 90.6 fl (80.0-96.0); MONO # 0.7 10^3/uL (0.0-0.8); NEUTROPHILS # 9.7 10^3/uL (1.8-7.7); NEUTROPHILS % 74.7 % (36.0-66.0); PLATELET COUNT, AUTOMATED 281 10^3/uL (150-450); RED BLOOD COUNT 4.24 10^6/uL (4.00-5.40); RED CELL DISTRIBUTION WIDTH 12.6 % (11.5-14.5)
[2017-05-19 16:51] LABS: ALBUMIN 2.5 GM/DL (3.2-5.2); ALBUMIN/GLOBULIN RATIO 0.42 (1.00-1.93); ALKALINE PHOSPHATASE 145 U/L (45-117); ALT/SGPT 17 U/L (12-78); ANION GAP 6 MEQ/L (8-16); AST/SGOT 11 U/L (7-37); BILIRUBIN,TOTAL 0.3 MG/DL (0.2-1.0); BLOOD UREA NITROGEN 10 MG/DL (7-18); CALCIUM LEVEL 8.3 MG/DL (8.5-10.1); CARBON DIOXIDE LEVEL 30 MEQ/L (21-32); CHLORIDE LEVEL 102 MEQ/L (98-107); GLOMERULAR FILTRATION RATE 48.1 (>58); SODIUM LEVEL 138 MEQ/L (136-145); TOTAL PROTEIN 8.5 GM/DL (6.4-8.2)
[2017-05-19 16:53] LABS: APPEARANCE, URINE CLOUDY (CLEAR); BACTERIA, URINE AUTO 1+ (NEGATIVE); BILIRUBIN, URINE AUTO NEGATIVE (NEGATIVE); BLOOD, URINE BLOOD 2+ (NEGATIVE); COLOR, URINE YELLOW (YELLOW); GLUCOSE, URINE (UA) AUTO 3+ mg/dL (NEGATIVE); KETONE, URINE AUTO NEGATIVE (NEGATIVE); LEUKOCYTE ESTERASE, URINE AUTO 3+ (NEGATIVE); MUCUS, URINE SMALL (NEGATIVE); NITRITE, URINE AUTO NEGATIVE (NEGATIVE); PROTEIN, URINE AUTO 2+ mg/dL (NEGATIVE); RBC, URINE AUTO 53 /HPF (0-3); SPECIFIC GRAVITY URINE AUTO 1.026 (1.002-1.035); SQUAMOUS EPITHELIAL CELL UR AU 13 /HPF (0-6); TRANSITIONAL EPITHELIAL AUTO 1 /HPF; UROBILINOGEN, URINE AUTO 0.2 mg/dL (0.0-2.0); WBC, URINE AUTO TNTC /HPF (0-3); YEAST LIKE CELL URINE AUTO SMALL
[2017-05-19 17:20] LABS: GLUCOSE, FASTING 479 MG/DL (70-105)
== END ==
LOC: M WUC 10:44
DX: N10 Acute pyelonephritis (principal)
CPT/HCPCS: 80053

== ENCOUNTER 2017-05-20 08:34 | Inpatient (IN) | payer BC ==
[2017-05-20] MEDS: NS 1,000 ML IV ×2 (09:20→11:11)
[2017-05-20 09:25] LABS: BASO % 0.3 % (0.0-1.0); EOS # 0.2 10^3/uL (0.0-0.50); EOS % 1.3 % (0.0-3.0); HEMATOCRIT 37.5 % (36.0-47.0); HEMOGLOBIN 11.8 g/dl (12.0-16.0); IMMATURE GRANULOCYTE # 0.2 10^3/uL (0-0); IMMATURE GRANULOCYTE % 1.2 % (0-0); LYMPH # 2.3 10^3/uL (1.5-4.5); LYMPH % 16.5 % (24.0-44.0); MEAN CORPUSCULAR HEMOGLOBIN 28.6 pg (27.0-33.0); MEAN CORPUSCULAR HGB CONC 31.5 g/dl (32.0-36.5); MONO # 0.9 10^3/uL (0.0-0.8); MONO % 6.6 % (0.0-5.0); NEUTROPHILS # 10.4 10^3/uL (1.8-7.7); NEUTROPHILS % 74.1 % (36.0-66.0); PLATELET COUNT, AUTOMATED 271 10^3/uL (150-450); RED BLOOD COUNT 4.12 10^6/uL (4.00-5.40); RED CELL DISTRIBUTION WIDTH 12.6 % (11.5-14.5); WHITE BLOOD COUNT 14.1 10^3/uL (4.0-10.0)
[2017-05-20 09:30] LABS: APPEARANCE, URINE CLOUDY (CLEAR); BACTERIA, URINE AUTO 2+ (NEGATIVE); BILIRUBIN, URINE AUTO NEGATIVE (NEGATIVE); BLOOD, URINE BLOOD 3+ (NEGATIVE); COLOR, URINE YELLOW (YELLOW); GLUCOSE, URINE (UA) AUTO 3+ mg/dL (NEGATIVE); KETONE, URINE AUTO NEGATIVE (NEGATIVE); LEUKOCYTE ESTERASE, URINE AUTO 3+ (NEGATIVE); NITRITE, URINE AUTO NEGATIVE (NEGATIVE); PROTEIN, URINE AUTO 2+ mg/dL (NEGATIVE); RBC, URINE AUTO 47 /HPF (0-3); SPECIFIC GRAVITY URINE AUTO 1.025 (1.002-1.035); SQUAMOUS EPITHELIAL CELL UR AU 5 /HPF (0-6); UROBILINOGEN, URINE AUTO 0.2 mg/dL (0.0-2.0); WBC, URINE AUTO TNTC /HPF (0-3); YEAST LIKE CELL URINE AUTO MODERATE
[2017-05-20 09:32] LABS: BEDSIDE GLUCOSE 359 MG/DL (70-105)
[2017-05-20 09:47] LABS: ALBUMIN 2.5 GM/DL (3.2-5.2); ALBUMIN/GLOBULIN RATIO 0.36 (1.00-1.93); ALKALINE PHOSPHATASE 144 U/L (45-117); ALT/SGPT 19 U/L (12-78); ANION GAP 8 MEQ/L (8-16); AST/SGOT 12 U/L (7-37); BILIRUBIN,DIRECT < 0.1 MG/DL (0.0-0.2); BILIRUBIN,TOTAL 0.3 MG/DL (0.2-1.0); BLOOD UREA NITROGEN 11 MG/DL (7-18); CALCIUM LEVEL 8.4 MG/DL (8.5-10.1); CARBON DIOXIDE LEVEL 28 MEQ/L (21-32); CHLORIDE LEVEL 102 MEQ/L (98-107); CREATININE FOR GFR 1.18 MG/DL (0.55-1.02); GLOMERULAR FILTRATION RATE 53.7 (>58); GLUCOSE, FASTING 378 MG/DL (70-105); POTASSIUM SERUM 3.7 MEQ/L (3.5-5.1); SODIUM LEVEL 138 MEQ/L (136-145); TOTAL PROTEIN 9.4 GM/DL (6.4-8.2)
[2017-05-20 09:52] LABS: LACTIC ACID SEPSIS PROTOCOL 2.8 MMOL/L (0.4-2.0)
[2017-05-20 10:01] LABS: OSMOLALITY SERUM 314 MOSM/KG (275-295)
[2017-05-20] MEDS: HumuLIN R (REGULAR) INSULIN (NovoLIN R) **100U/ML** PER UNIT IV (10:12)
[2017-05-20] MEDS: LevoFLOXacin IV 750 MG in APPROPRIATE DILUENT 1 EA IV (10:12)
[2017-05-20] MEDS ORDERED: GLUCOSE 4 GM CHEW TABLET PO (12:00)
[2017-05-20] MEDS ORDERED: ACETAMINOPHEN TAB 650MG DOSE (2X325MG) PO (12:00)
[2017-05-20] MEDS ORDERED: GLUCAGON FOR INJ 1 MG VIAL (J1610) SC (12:00)
[2017-05-20] MEDS ORDERED: ONDANSETRON 4MG/2ML VIAL (J2405) IV (12:00)
[2017-05-20] MEDS ORDERED: DEXTROSE 50% 50 ML SYRINGE IV (12:00)
[2017-05-20 12:07] LABS: C REACTIVE PROTEIN QUANTITATIV 8.58 MG/DL (0.00-0.30); CPK CREATINE PHOSPHOKINASE 15 U/L (26-192); MAGNESIUM LEVEL 1.5 MG/DL (1.8-2.4); TROPONIN I < 0.02 NG/ML (< 0.10)
[2017-05-20 12:11] LABS: ERYTHROCYTE SEDIMENTATION RATE 10 mm/hr (0-20)
[2017-05-20 12:12] LABS: MB/CK RELATIVE INDEX 6.66 (< OR =4); NT-PRO BNP 193 PG/ML (<125)
[2017-05-20 12:33] LABS: BEDSIDE GLUCOSE 226 MG/DL (70-105)
[2017-05-20] MEDS: HEPARIN SOD (PORCINE) 5000 UNITS/ML VIAL SC ×2 (13:07→21:18)
[2017-05-20] MEDS: PANTOPRAZOLE 40MG TAB (PROTONIX) PO (13:08)
[2017-05-20] MEDS: amLODIPine 5 MG TAB PO (13:08)
[2017-05-20] MEDS: MULTIVITAMINS/MINERALS THERAP 1 TAB PO (13:08)
[2017-05-20] MEDS: HumaLOG INSULIN (NovoLOG) PER UNIT SC ×3 (13:09→21:18)
[2017-05-20 13:11] LABS: FREE THYROXINE INDEX 2.7 % (1.3-4.8); T UPTAKE 33 % (30-39); THYROXINE (T4) 8.2 UG/DL (4.5-12.0)
[2017-05-20] MEDS: MAG SULF 1GM/100ML (MAG RUN) 1 GM in APPROPRIATE DILUENT 1 EA IV (13:13)
[2017-05-20] MEDS ORDERED: IPRATROPIUM 0.5MG/ALBUTEROL 2.5MG INH SOL UD 3ML (DUONEB)(J7620) NEB (13:30)
[2017-05-20] MEDS: SENOKOT S TAB PO ×2 (14:26→21:19)
[2017-05-20] MEDS: PERCOCET 5MG/325MG TAB PO ×2 (14:27→21:19)
[2017-05-20] MEDS ORDERED: ISOVUE-370 76% 100ML VIAL (Q9967) As Ordered (14:42)
[2017-05-20 17:14] LABS: BEDSIDE GLUCOSE 274 MG/DL (70-105)
[2017-05-20 21:06] LABS: BEDSIDE GLUCOSE 332 MG/DL (70-105)
[2017-05-21] MEDS: NS 1,000 ML IV (00:12)
[2017-05-21] MEDS: HEPARIN SOD (PORCINE) 5000 UNITS/ML VIAL SC ×3 (05:53→20:55)
[2017-05-21] MEDS: PERCOCET 5MG/325MG TAB PO ×2 (05:54→20:57)
[2017-05-21 06:51] LABS: BEDSIDE GLUCOSE 282 MG/DL (70-105)
[2017-05-21 07:15] LABS: BASO % 0.3 % (0.0-1.0); EOS # 0.1 10^3/uL (0.0-0.50); HEMATOCRIT 30.9 % (36.0-47.0); IMMATURE GRANULOCYTE # 0.2 10^3/uL (0-0); IMMATURE GRANULOCYTE % 1.6 % (0-0); LYMPH # 2.4 10^3/uL (1.5-4.5); MEAN CORPUSCULAR HGB CONC 31.7 g/dl (32.0-36.5); MEAN CORPUSCULAR VOLUME 91.4 fl (80.0-96.0); MONO # 0.8 10^3/uL (0.0-0.8); MONO % 7.4 % (0.0-5.0); NEUTROPHILS % 66.7 % (36.0-66.0); PLATELET COUNT, AUTOMATED 198 10^3/uL (150-450); RED BLOOD COUNT 3.38 10^6/uL (4.00-5.40); RED CELL DISTRIBUTION WIDTH 12.8 % (11.5-14.5); WHITE BLOOD COUNT 10.5 10^3/uL (4.0-10.0)
[2017-05-21 07:22] LABS: HEMOGLOBIN 9.8 g/dl (12.0-16.0)
[2017-05-21 08:27] LABS: ALBUMIN 1.9 GM/DL (3.2-5.2); ALBUMIN/GLOBULIN RATIO 0.33 (1.00-1.93); ALKALINE PHOSPHATASE 101 U/L (45-117); ALT/SGPT 14 U/L (12-78); ANION GAP 4 MEQ/L (8-16); AST/SGOT 9 U/L (7-37); BILIRUBIN,TOTAL 0.3 MG/DL (0.2-1.0); BLOOD UREA NITROGEN 11 MG/DL (7-18); CALCIUM LEVEL 7.9 MG/DL (8.5-10.1); CARBON DIOXIDE LEVEL 30 MEQ/L (21-32); CHLORIDE LEVEL 106 MEQ/L (98-107); CREATININE FOR GFR 0.99 MG/DL (0.55-1.02); GLOMERULAR FILTRATION RATE > 60.0 (>58); GLUCOSE, FASTING 244 MG/DL (70-105); MAGNESIUM LEVEL 1.6 MG/DL (1.8-2.4); POTASSIUM SERUM 3.6 MEQ/L (3.5-5.1); SODIUM LEVEL 140 MEQ/L (136-145); TOTAL PROTEIN 7.7 GM/DL (6.4-8.2)
[2017-05-21] MEDS: MULTIVITAMINS/MINERALS THERAP 1 TAB PO (08:49)
[2017-05-21] MEDS: SENOKOT S TAB PO ×2 (08:49→20:50)
[2017-05-21] MEDS: PANTOPRAZOLE 40MG TAB (PROTONIX) PO (08:49)
[2017-05-21] MEDS: amLODIPine 5 MG TAB PO (08:50)
[2017-05-21] MEDS: HumaLOG INSULIN (NovoLOG) PER UNIT SC ×4 (08:50→20:56)
[2017-05-21] MEDS: LevoFLOXacin IV 750 MG in APPROPRIATE DILUENT 1 EA IV (10:08)
[2017-05-21 12:08] LABS: BEDSIDE GLUCOSE 356 MG/DL (70-105)
[2017-05-21] MEDS: MAG SULF 1GM/100ML (MAG RUN) 1 GM in APPROPRIATE DILUENT 1 EA IV (13:58)
[2017-05-21 16:38] LABS: BEDSIDE GLUCOSE 372 MG/DL (70-105)
[2017-05-21 21:27] LABS: BEDSIDE GLUCOSE 352 MG/DL (70-105)
[2017-05-22] MEDS: HEPARIN SOD (PORCINE) 5000 UNITS/ML VIAL SC ×3 (05:06→21:17)
[2017-05-22 06:36] LABS: BASO % 0.4 % (0.0-1.0); EOS # 0.1 10^3/uL (0.0-0.50); HEMATOCRIT 31.5 % (36.0-47.0); HEMOGLOBIN 10.1 g/dl (12.0-16.0); IMMATURE GRANULOCYTE # 0.2 10^3/uL (0-0); IMMATURE GRANULOCYTE % 1.7 % (0-0); LYMPH # 2.4 10^3/uL (1.5-4.5); LYMPH % 22.1 % (24.0-44.0); MEAN CORPUSCULAR HEMOGLOBIN 28.9 pg (27.0-33.0); MEAN CORPUSCULAR HGB CONC 32.1 g/dl (32.0-36.5); MEAN CORPUSCULAR VOLUME 90.3 fl (80.0-96.0); MONO # 0.8 10^3/uL (0.0-0.8); MONO % 7.3 % (0.0-5.0); NEUTROPHILS # 7.2 10^3/uL (1.8-7.7); NEUTROPHILS % 67.5 % (36.0-66.0); PLATELET COUNT, AUTOMATED 202 10^3/uL (150-450); RED BLOOD COUNT 3.49 10^6/uL (4.00-5.40); RED CELL DISTRIBUTION WIDTH 12.7 % (11.5-14.5); WHITE BLOOD COUNT 10.7 10^3/uL (4.0-10.0)
[2017-05-22 06:53] LABS: ALBUMIN 1.9 GM/DL (3.2-5.2); ALBUMIN/GLOBULIN RATIO 0.32 (1.00-1.93); ALKALINE PHOSPHATASE 109 U/L (45-117); ALT/SGPT 12 U/L (12-78); ANION GAP 4 MEQ/L (8-16); AST/SGOT 12 U/L (7-37); BILIRUBIN,TOTAL 0.2 MG/DL (0.2-1.0); BLOOD UREA NITROGEN 9 MG/DL (7-18); CALCIUM LEVEL 8.1 MG/DL (8.5-10.1); CARBON DIOXIDE LEVEL 29 MEQ/L (21-32); CHLORIDE LEVEL 106 MEQ/L (98-107); CREATININE FOR GFR 0.94 MG/DL (0.55-1.02); GLOMERULAR FILTRATION RATE > 60.0 (>58); GLUCOSE, FASTING 291 MG/DL (70-105); POTASSIUM SERUM 3.8 MEQ/L (3.5-5.1); SODIUM LEVEL 139 MEQ/L (136-145); TOTAL PROTEIN 7.8 GM/DL (6.4-8.2)
[2017-05-22] MEDS: PANTOPRAZOLE 40MG TAB (PROTONIX) PO (07:55)
[2017-05-22] MEDS: MULTIVITAMINS/MINERALS THERAP 1 TAB PO (07:55)
[2017-05-22] MEDS: PERCOCET 5MG/325MG TAB PO (07:55)
[2017-05-22] MEDS: amLODIPine 5 MG TAB PO (07:56)
[2017-05-22] MEDS: HumaLOG INSULIN (NovoLOG) PER UNIT SC ×4 (07:57→21:17)
[2017-05-22] MEDS: SENOKOT S TAB PO ×2 (09:00→20:54)
[2017-05-22] MEDS: LevoFLOXacin IV 750 MG in APPROPRIATE DILUENT 1 EA IV (10:11)
[2017-05-22 12:06] LABS: BEDSIDE GLUCOSE 388 MG/DL (70-105)
[2017-05-22] MEDS: LIDOCAINE 5% (LIDODERM) PATCH TD (13:10)
[2017-05-22 16:55] LABS: BEDSIDE GLUCOSE 298 MG/DL (70-105)
[2017-05-22] MEDS: **NOTE PATIENT COMMENT** MISC XX (21:00)
[2017-05-22 21:02] LABS: BEDSIDE GLUCOSE 275 MG/DL (70-105)
[2017-05-22] MEDS: LEVEMIR (INSULIN DETEMIR) 1 UNITS/0.01ML SC (21:17)
[2017-05-23] MEDS: PERCOCET 5MG/325MG TAB PO ×2 (03:14→21:10)
[2017-05-23] MEDS: HEPARIN SOD (PORCINE) 5000 UNITS/ML VIAL SC ×3 (05:18→21:09)
[2017-05-23] MEDS: LevoFLOXacin 500 MG TABLET PO (05:18)
[2017-05-23 07:07] LABS: BEDSIDE GLUCOSE 260 MG/DL (70-105)
[2017-05-23 07:56] LABS: BASO % 0.3 % (0.0-1.0); EOS # 0.1 10^3/uL (0.0-0.50); EOS % 1.1 % (0.0-3.0); HEMATOCRIT 33.6 % (36.0-47.0); HEMOGLOBIN 10.8 g/dl (12.0-16.0); IMMATURE GRANULOCYTE # 0.2 10^3/uL (0-0); IMMATURE GRANULOCYTE % 1.5 % (0-0); LYMPH # 2.5 10^3/uL (1.5-4.5); LYMPH % 22.3 % (24.0-44.0); MEAN CORPUSCULAR HEMOGLOBIN 28.9 pg (27.0-33.0); MEAN CORPUSCULAR HGB CONC 32.1 g/dl (32.0-36.5); MEAN CORPUSCULAR VOLUME 89.8 fl (80.0-96.0); MONO # 0.7 10^3/uL (0.0-0.8); NEUTROPHILS # 7.7 10^3/uL (1.8-7.7); NEUTROPHILS % 68.8 % (36.0-66.0); PLATELET COUNT, AUTOMATED 218 10^3/uL (150-450); RED BLOOD COUNT 3.74 10^6/uL (4.00-5.40); RED CELL DISTRIBUTION WIDTH 12.7 % (11.5-14.5); WHITE BLOOD COUNT 11.1 10^3/uL (4.0-10.0)
[2017-05-23 08:31] LABS: ALBUMIN 2.2 GM/DL (3.2-5.2); ALBUMIN/GLOBULIN RATIO 0.34 (1.00-1.93); ALKALINE PHOSPHATASE 118 U/L (45-117); ALT/SGPT 13 U/L (12-78); ANION GAP 5 MEQ/L (8-16); AST/SGOT 12 U/L (7-37); BILIRUBIN,TOTAL 0.3 MG/DL (0.2-1.0); BLOOD UREA NITROGEN 13 MG/DL (7-18); CALCIUM LEVEL 8.5 MG/DL (8.5-10.1); CARBON DIOXIDE LEVEL 30 MEQ/L (21-32); CHLORIDE LEVEL 103 MEQ/L (98-107); CREATININE FOR GFR 1.08 MG/DL (0.55-1.02); GLOMERULAR FILTRATION RATE 59.5 (>58); GLUCOSE, FASTING 278 MG/DL (70-105); POTASSIUM SERUM 3.7 MEQ/L (3.5-5.1); SODIUM LEVEL 138 MEQ/L (136-145); TOTAL PROTEIN 8.6 GM/DL (6.4-8.2)
[2017-05-23] MEDS: HumaLOG INSULIN (NovoLOG) PER UNIT SC ×4 (08:31→21:09)
[2017-05-23] MEDS: LIDOCAINE 5% (LIDODERM) PATCH TD (08:32)
[2017-05-23] MEDS: MULTIVITAMINS/MINERALS THERAP 1 TAB PO (08:32)
[2017-05-23] MEDS: PANTOPRAZOLE 40MG TAB (PROTONIX) PO (08:32)
[2017-05-23] MEDS: FLUCONAZOLE 100 MG TAB PO (08:34)
[2017-05-23] MEDS: SENOKOT S TAB PO ×2 (08:34→21:00)
[2017-05-23] MEDS: amLODIPine 5 MG TAB PO (08:34)
[2017-05-23] MEDS: LEVEMIR (INSULIN DETEMIR) 1 UNITS/0.01ML SC ×2 (08:35→21:09)
[2017-05-23] MEDS ORDERED: NS 500 ML IV (09:00)
[2017-05-23] MEDS: METOPROLOL TART 12.5 MG PER 1/2 TAB PO ×2 (11:40→21:10)
[2017-05-23 12:03] LABS: BEDSIDE GLUCOSE 361 MG/DL (70-105)
[2017-05-23 16:45] LABS: BEDSIDE GLUCOSE 327 MG/DL (70-105)
[2017-05-23 20:28] LABS: BEDSIDE GLUCOSE 350 MG/DL (70-105)
[2017-05-23] MEDS: **NOTE PATIENT COMMENT** MISC XX (21:00)
[2017-05-24] MEDS: PERCOCET 5MG/325MG TAB PO ×2 (02:16→08:06)
[2017-05-24] MEDS: HEPARIN SOD (PORCINE) 5000 UNITS/ML VIAL SC (05:30)
[2017-05-24] MEDS: LevoFLOXacin 500 MG TABLET PO (05:30)
[2017-05-24 06:46] LABS: BASO % 0.3 % (0.0-1.0); EOS # 0.1 10^3/uL (0.0-0.50); EOS % 1.1 % (0.0-3.0); HEMATOCRIT 31.3 % (36.0-47.0); HEMOGLOBIN 9.9 g/dl (12.0-16.0); IMMATURE GRANULOCYTE # 0.2 10^3/uL (0-0); IMMATURE GRANULOCYTE % 1.5 % (0-0); LYMPH # 2.5 10^3/uL (1.5-4.5); LYMPH % 21.2 % (24.0-44.0); MEAN CORPUSCULAR HEMOGLOBIN 28.4 pg (27.0-33.0); MEAN CORPUSCULAR HGB CONC 31.6 g/dl (32.0-36.5); MEAN CORPUSCULAR VOLUME 89.9 fl (80.0-96.0); MONO # 0.8 10^3/uL (0.0-0.8); MONO % 6.9 % (0.0-5.0); NEUTROPHILS # 8.1 10^3/uL (1.8-7.7); PLATELET COUNT, AUTOMATED 226 10^3/uL (150-450); RED BLOOD COUNT 3.48 10^6/uL (4.00-5.40); RED CELL DISTRIBUTION WIDTH 12.9 % (11.5-14.5); WHITE BLOOD COUNT 11.7 10^3/uL (4.0-10.0)
[2017-05-24 06:49] LABS: BEDSIDE GLUCOSE 303 MG/DL (70-105)
[2017-05-24 07:13] LABS: ALBUMIN/GLOBULIN RATIO 0.32 (1.00-1.93); ALKALINE PHOSPHATASE 112 U/L (45-117); ALT/SGPT 15 U/L (12-78); ANION GAP 6 MEQ/L (8-16); AST/SGOT 14 U/L (7-37); BILIRUBIN,TOTAL 0.3 MG/DL (0.2-1.0); BLOOD UREA NITROGEN 13 MG/DL (7-18); C REACTIVE PROTEIN QUANTITATIV 6.84 MG/DL (0.00-0.30); CALCIUM LEVEL 8.4 MG/DL (8.5-10.1); CARBON DIOXIDE LEVEL 31 MEQ/L (21-32); CHLORIDE LEVEL 101 MEQ/L (98-107); CREATININE FOR GFR 1.06 MG/DL (0.55-1.02); GLOMERULAR FILTRATION RATE > 60.0 (>58); GLUCOSE, FASTING 296 MG/DL (70-105); SODIUM LEVEL 138 MEQ/L (136-145); TOTAL PROTEIN 8.3 GM/DL (6.4-8.2)
[2017-05-24] MEDS: amLODIPine 5 MG TAB PO (08:05)
[2017-05-24] MEDS: METOPROLOL TART 12.5 MG PER 1/2 TAB PO (08:05)
[2017-05-24] MEDS: FLUCONAZOLE 100 MG TAB PO (08:06)
[2017-05-24] MEDS: MULTIVITAMINS/MINERALS THERAP 1 TAB PO (08:07)
[2017-05-24] MEDS: PANTOPRAZOLE 40MG TAB (PROTONIX) PO (08:07)
[2017-05-24] MEDS: HumaLOG INSULIN (NovoLOG) PER UNIT SC ×2 (08:08→12:32)
[2017-05-24] MEDS: LIDOCAINE 5% (LIDODERM) PATCH TD (08:08)
[2017-05-24] MEDS: LEVEMIR (INSULIN DETEMIR) 1 UNITS/0.01ML SC (08:13)
[2017-05-24 09:06] LABS: ESTIMATED AVERAGE GLUCOSE 286 MG/DL (60-110); HEMOGLOBIN A1c 11.6 %
[2017-05-24 11:49] LABS: BEDSIDE GLUCOSE 339 MG/DL (70-105)
[2017-05-24] MEDS ORDERED: SENOKOT S TAB PO (21:00)
== END 2017-05-24 14:00 | disposition home or self-care (01) | DRG 463 ==
LOC: M MSPAV 05-21 12:30 → M ED 08:34 → M ED INP 11:42
DX: N10 Acute pyelonephritis (principal); I11.0 Hypertensive heart disease with heart failure; E87.2 Acidosis; I50.32 Chronic diastolic (congestive) heart failure; E11.65 Type 2 diabetes mellitus with hyperglycemia; Z68.42 Body mass index [BMI] 45.0-49.9, adult; E66.01 Morbid (severe) obesity due to excess calories; E83.42 Hypomagnesemia; J45.909 Unspecified asthma, uncomplicated; R63.4 Abnormal weight loss; M16.0 Bilateral primary osteoarthritis of hip; M25.511 Pain in right shoulder; M25.512 Pain in left shoulder; Z79.899 Other long term (current) drug therapy; Z79.84 Long term (current) use of oral hypoglycemic drugs

== ENCOUNTER → 2017-06-01 | Outpatient (REF) | payer BC | LOC: M LAB REF 17:39 | DX: N39.0 Urinary tract infection, site not specified (principal) | CPT/HCPCS: 87086 ==

== ENCOUNTER → 2017-06-08 | Outpatient (CLI) | payer BC ==
[2017-06-08 19:10] LABS: APPEARANCE, URINE CLOUDY (CLEAR); BACTERIA, URINE AUTO 1+ (NEGATIVE); BILIRUBIN, URINE AUTO NEGATIVE (NEGATIVE); BLOOD, URINE BLOOD 2+ (NEGATIVE); COLOR, URINE AMBER (YELLOW); GLUCOSE, URINE (UA) AUTO 1+ mg/dL (NEGATIVE); KETONE, URINE AUTO NEGATIVE (NEGATIVE); LEUKOCYTE ESTERASE, URINE AUTO 3+ (NEGATIVE); MUCUS, URINE SMALL (NEGATIVE); NITRITE, URINE AUTO NEGATIVE (NEGATIVE); PROTEIN, URINE AUTO 1+ mg/dL (NEGATIVE); RBC, URINE AUTO 37 /HPF (0-3); SPECIFIC GRAVITY URINE AUTO 1.013 (1.002-1.035); SQUAMOUS EPITHELIAL CELL UR AU 5 /HPF (0-6); TRANSITIONAL EPITHELIAL AUTO 1 /HPF; UROBILINOGEN, URINE AUTO 0.2 mg/dL (0.0-2.0); WBC, URINE AUTO TNTC /HPF (0-3)
[2017-06-08 20:19] LABS: ANION GAP 8 MEQ/L (8-16); BLOOD UREA NITROGEN 12 MG/DL (7-18); CALCIUM LEVEL 8.9 MG/DL (8.5-10.1); CARBON DIOXIDE LEVEL 26 MEQ/L (21-32); CHLORIDE LEVEL 103 MEQ/L (98-107); CREATININE FOR GFR 0.98 MG/DL (0.55-1.30); GLOMERULAR FILTRATION RATE > 60.0 (>58); GLUCOSE, FASTING 161 MG/DL (70-100); POTASSIUM SERUM 4.6 MEQ/L (3.5-5.1); SODIUM LEVEL 137 MEQ/L (136-145)
== END ==
LOC: M WUC 13:24
DX: N10 Acute pyelonephritis (principal)
CPT/HCPCS: 80048

== ENCOUNTER → 2018-04-09 | Outpatient (CLI) | payer BC ==
[2018-04-09 12:50] LABS: BASO % 0.3 % (0.0-1.0); EOS # 0.4 10^3/uL (0.0-0.50); EOS % 3.8 % (0.0-3.0); HEMATOCRIT 44.5 % (36.0-47.0); HEMOGLOBIN 14.2 g/dl (12.0-15.5); IMMATURE GRANULOCYTE % 0.3 % (0-3.0); LYMPH % 21.7 % (24.0-44.0); MEAN CORPUSCULAR HEMOGLOBIN 30.5 pg (27.0-33.0); MEAN CORPUSCULAR HGB CONC 31.9 g/dl (32.0-36.5); MEAN CORPUSCULAR VOLUME 95.5 fl (80.0-96.0); MONO # 0.6 10^3/uL (0.0-0.8); MONO % 6.7 % (0.0-5.0); NEUTROPHILS # 6.2 10^3/uL (1.8-7.7); NEUTROPHILS % 67.2 % (36.0-66.0); PLATELET COUNT, AUTOMATED 205 10^3/uL (150-450); RED BLOOD COUNT 4.66 10^6/uL (4.00-5.40); RED CELL DISTRIBUTION WIDTH 13.6 % (11.5-14.5); WHITE BLOOD COUNT 9.2 10^3/uL (4.0-10.0)
[2018-04-09 13:58] LABS: ALBUMIN 3.4 GM/DL (3.2-5.2); ALBUMIN/GLOBULIN RATIO 0.97 (1.00-1.93); ALKALINE PHOSPHATASE 116 U/L (45-117); ALT/SGPT 24 U/L (12-78); ANION GAP 10 MEQ/L (8-16); AST/SGOT 13 U/L (7-37); BILIRUBIN,TOTAL 0.4 MG/DL (0.2-1.0); BLOOD UREA NITROGEN 19 MG/DL (7-18); CALCIUM LEVEL 8.8 MG/DL (8.5-10.1); CARBON DIOXIDE LEVEL 27 MEQ/L (21-32); CHLORIDE LEVEL 103 MEQ/L (98-107); CHOLESTEROL LEVEL 222 MG/DL (<200); CHOLESTEROL RISK RATIO 5.285 (<5); CREATININE FOR GFR 0.96 MG/DL (0.55-1.30); GLOMERULAR FILTRATION RATE > 60.0 (>58); GLUCOSE, FASTING 159 MG/DL (70-100); HDL CHOLESTEROL 42 MG/DL (>40); LDL CHOLESTEROL 127 MG/DL (<100); NON-HDL-C 180 MG/DL; SODIUM LEVEL 140 MEQ/L (136-145); TOTAL PROTEIN 6.9 GM/DL (6.4-8.2); TRIGLYCERIDES LEVEL 265 MG/DL (<150)
[2018-04-09 14:03] LABS: ESTIMATED AVERAGE GLUCOSE 192 MG/DL (60-110); HEMOGLOBIN A1c 8.3 %
== END ==
LOC: M WUC 10:44
DX: N10 Acute pyelonephritis (principal)
CPT/HCPCS: 80053

== ENCOUNTER → 2019-12-02 | Outpatient (REF) | payer BC ==
[~2019-12-02] MED LIST changes: +ADVI200T PO; +ADVOKIT XX; +AMLO1TAB24 PO; +AMLO1TAB25 PO; +BENA25TA10 PO; +FLUC10TA PO; +GLIP10TA6 PO; +GLIP5TAB8 PO; +HUMA100I5 SC; +IBUPOTC PO; +LEVA1TAB2 PO; +LEVE1INJ5 SC; +METO1TAB87 PO; +NAPR250T4 PO; +PATIENT COMMENT; +SENN-53 PO; +VITMTA PO; +[UNRECOGNIZED DRUG - CODE] XX
[2019-12-26 23:07] LABS: HEMATOCRIT 48.6 % (36.0-47.0); HEMOGLOBIN 15.2 g/dl (12.0-15.5); MEAN CORPUSCULAR HEMOGLOBIN 30.3 pg (27.0-33.0); MEAN CORPUSCULAR HGB CONC 31.3 g/dl (32.0-36.5); PLATELET COUNT, AUTOMATED 198 10^3/uL (150-450); RED BLOOD COUNT 5.01 10^6/uL (4.00-5.40); WHITE BLOOD COUNT 9.3 10^3/uL (4.0-10.0)
[2020-01-06 10:33] LABS: HEMOGLOBIN A1c 11.1 %
[2020-02-06 08:27] LABS: GLUCOSE, FASTING SEE SEPARATE REPORT MG/DL (70-100)
[2020-02-07 11:32] LABS: MALB URINE SIEMENS SEE SEPARATE REPORT MG/L
== END ==
LOC: M WUC 08:39
PROVIDERS: ATTEND Family Medicine
DX: E11.9 Type 2 diabetes mellitus without complications (principal)

== ENCOUNTER → 2020-04-28 | Outpatient (CLI) | payer SELFPAY | LOC: M LABSMTC 11:16 | PROVIDERS: ATTEND Pediatrics | DX: Z20.828 Contact with and (suspected) exposure to other viral communicable diseases (principal) ==

== ENCOUNTER → 2020-06-30 | Outpatient (CLI) | payer BC ==
[2020-06-30 11:49] LABS: HEMATOCRIT 50.2 % (36.0-47.0); HEMOGLOBIN 15.6 g/dl (12.0-15.5); MEAN CORPUSCULAR HEMOGLOBIN 29.7 pg (27.0-33.0); MEAN CORPUSCULAR HGB CONC 31.1 g/dl (32.0-36.5); MEAN CORPUSCULAR VOLUME 95.6 fl (80.0-96.0); PLATELET COUNT, AUTOMATED 225 10^3/uL (150-450); RED BLOOD COUNT 5.25 10^6/uL (4.00-5.40); WHITE BLOOD COUNT 11.4 10^3/uL (4.0-10.0)
[2020-06-30 12:24] LABS: HEMOGLOBIN A1c 10.4 %
[2020-06-30 12:27] LABS: ALBUMIN 3.8 GM/DL (3.2-5.2); BILIRUBIN,TOTAL 0.4 MG/DL (0.2-1.0); CALCIUM LEVEL 9.7 MG/DL (8.5-10.1); CHOLESTEROL RISK RATIO 5.333 (<5); CREATININE FOR GFR 1.09 MG/DL (0.55-1.30); GLOMERULAR FILTRATION RATE 58.1 (>58); POTASSIUM SERUM 4.5 MEQ/L (3.5-5.1); TOTAL PROTEIN 7.1 GM/DL (6.4-8.2)
[2020-06-30 12:54] LABS: MAU/CREAT RATIO 126.7 MCG/MG (0.0-30.0)
== END ==
LOC: M WUC 09:47
PROVIDERS: ATTEND Family Medicine
DX: E11.9 Type 2 diabetes mellitus without complications (principal)

== ENCOUNTER 2021-04-26 08:48 | Outpatient (CLI) | payer BC ==
[~2021-04-26 08:48] MED LIST changes: +ALBUTEROL 90 MCG/ACT 8GM HFA INHALER INH PRN; +ALBUTEROL SULFATE 2.5 MG/0.5 ML INH NEB SOLN INH PRN; +EPINEPHrine INJ 1 MG/ML 1ML AMP IM PRN; +NAPR-849 PO; -NAPR250T4 PO; +NS 1,000 ML IV SCH; +diphenhydrAMINE 50MG/ML VIAL (J1200) IV PRN; +methylPREDNISolone 125MG 2ML VIAL IV PRN
[2021-04-26] MEDS ORDERED: CASIRIVIMAB/IMDEVIMAB 1,200 MG in NS 250 ML IV ONE (09:30)
[2021-04-26 10:00] VITALS: BP 114/56
[2021-04-26 10:30] VITALS: BP 123/63
[2021-04-26 11:00] VITALS: BP 129/70
[2021-04-26 12:00] VITALS: BP 127/63
== END 2021-04-26 12:00 | disposition home or self-care (01) ==
LOC: M OPCLI4PR 08:48
PROVIDERS: ATTEND Family Medicine
DX: U07.1 COVID-19 (principal)

== ENCOUNTER → 2021-12-16 | Outpatient (REF) | payer BC ==
[~2021-12-16] MED LIST changes: -ALBUTEROL 90 MCG/ACT 8GM HFA INHALER INH PRN; -ALBUTEROL SULFATE 2.5 MG/0.5 ML INH NEB SOLN INH PRN; -EPINEPHrine INJ 1 MG/ML 1ML AMP IM PRN; -NS 1,000 ML IV SCH; -diphenhydrAMINE 50MG/ML VIAL (J1200) IV PRN; -methylPREDNISolone 125MG 2ML VIAL IV PRN
[2021-12-16 18:19] LABS: MAU/CREAT RATIO 90.7 MCG/MG (0.0-30.0)
== END ==
LOC: M LAB REF 16:48
PROVIDERS: ATTEND Nurse Practitioner Family
DX: E11.65 Type 2 diabetes mellitus with hyperglycemia (principal)

== ENCOUNTER → 2022-10-24 | Outpatient (CLI) | payer BC ==
[~2022-10-24] MED LIST changes: +INSU100I6 SC; -LEVE1INJ5 SC
== END ==
LOC: M RAD 10:05
PROVIDERS: ATTEND Nurse Practitioner Family
DX: N18.31 Chronic kidney disease, stage 3a (principal)

== ENCOUNTER → 2023-09-06 | Outpatient (REF) | payer BC ==
[~2023-09-06] MED LIST changes: +GLIP5TAB17 PO; -GLIP5TAB8 PO
[2023-09-06 16:16] LABS: CREATININE, URINE 89.2 MG/DL; MAU/CREAT RATIO 172.6 MCG/MG (0.0-30.0)
== END ==
LOC: M LAB REF 14:59
PROVIDERS: ATTEND Nurse Practitioner Family
DX: E11.65 Type 2 diabetes mellitus with hyperglycemia (principal)

== ENCOUNTER → 2023-09-12 | Outpatient (REF) | payer BC ==
[2023-09-12 18:05] LABS: BACTERIA, URINE AUTO NEGATIVE (NEGATIVE); RBC, URINE AUTO 0 /HPF (0-3); SQUAMOUS EPITHELIAL CELL UR AU 3 /HPF (0-6); WBC, URINE AUTO 0 /HPF (0-3)
== END ==
LOC: M LAB REF 17:03
PROVIDERS: ATTEND Nurse Practitioner Family
DX: R31.21 Asymptomatic microscopic hematuria (principal); Z87.440 Personal history of urinary (tract) infections

== ENCOUNTER → 2024-12-13 | Outpatient (CLI) | payer BC ==
[~2024-12-13] MED LIST changes: +GLIP10TA15 PO; -GLIP10TA6 PO
[2024-12-13 14:03] LABS: CHOLESTEROL LEVEL 184.0 MG/DL (<200); CHOLESTEROL RISK RATIO 4.12 (<5); LDL CHOLESTEROL 104.2 MG/DL (<100); NON-HDL-C 139.4 MG/DL; TRIGLYCERIDES LEVEL 176.0 MG/DL (<150)
== END ==
LOC: M WUC 08:06
PROVIDERS: ATTEND Family Medicine
DX: E78.5 Hyperlipidemia, unspecified (principal)